=== PATIENT | male | born 1940 | race Native Hawaiian/Other Pacific Islander ===

== ENCOUNTER 2022-06-19 12:48 | Outpatient (CLI) | payer BC | END 2022-06-19 18:53 | disposition home or self-care (01) | LOC: LAB 12:48 | PROVIDERS: ATTEND Internal Medicine | DX: N39.0 Urinary tract infection, site not specified (principal) | CPT/HCPCS: 87077; 87086; 87088; 87186 ==

== ENCOUNTER 2022-08-21 09:31 | Outpatient (CLI) | payer BC ==
[2022-08-21 10:00] LABS: PLATELET COUNT 228 K/uL (142-355)
[2022-08-21 10:10] LABS: POTASSIUM 4.1 mmol/L (3.6-5.2)
== END 2022-08-21 23:58 | disposition home or self-care (01) ==
LOC: LABW 09:31
PROVIDERS: ATTEND Internal Medicine
DX: E11.9 Type 2 diabetes mellitus without complications (principal); R82.998 Other abnormal findings in urine
CPT/HCPCS: 36415; 80053; 80061; 81000; 84439; 84443; 85027; 87088

== ENCOUNTER 2022-11-11 09:29 | Outpatient (CLI) | payer BC | END 2022-11-11 20:17 | disposition home or self-care (01) | LOC: LABW 09:29 | PROVIDERS: ATTEND Internal Medicine | DX: E03.8 Other specified hypothyroidism (principal) | CPT/HCPCS: 36415; 84439; 84443 ==